=== PATIENT | male | born 1990 | race American Indian/Alaskan Native ===

== ENCOUNTER 2017-08-26 17:36 | Emergency (ER) | payer SELFPAY ==
[2017-08-26 19:05] LABS: Basophils % (Auto) 0.2 % (0.0-1.8); Eosinophils # (Auto) 0.1 K/mm3 (0.0-0.4); Hematocrit 43.2 % (35.5-45.6); Hemoglobin 14.5 gm/dl (11.8-15.2); Lymphocytes # (Auto) 1.7 K/mm3 (1.2-5.4); Lymphocytes % (Auto) 13.2 % (13.4-35.0); Mean Corpuscular HGB Conc 34 % (32-34); Mean Corpuscular Hemoglobin 30 pg (28-32); Mean Corpuscular Volume 89 fl (84-94); Monocytes % (Auto) 7.3 % (0.0-7.3); Platelet Count 246 K/mm3 (140-440); Red Blood Count 4.88 M/mm3 (3.65-5.03); Red Cell Distribution Width 12.9 % (13.2-15.2)
[2017-08-26 19:12] LABS: BUN/Creatinine Ratio 11; Blood Urea Nitrogen 8 mg/dL (9-20); Calcium 9.1 mg/dL (8.4-10.2); Hemolysis Index 10
--- NOTE | 2017-08-26 20:01 | XRay Report ---
FINAL REPORT EXAM: XR CHEST ROUTINE 2V HISTORY: Shortness of breath TECHNIQUE: PA and lateral views of the chest PRIORS: None. FINDINGS: Lines, tubes, and devices: N/A Lungs and pleura: Trachea is normal in position. Lungs are clear of infiltrate, pleural effusion, vascular congestion, or pneumothorax. Cardiomediastinal silhouette: Cardiac and mediastinal silhouettes are unremarkable. Other: Bony structures are intact. IMPRESSION: No acute cardiopulmonary process seen.
--- NOTE | 2017-08-27 04:10 | Emergency Department Report ---
ED General Adult HPI - General Chief complaint: Dyspnea/Respdistress Stated complaint: L SIDE PAIN Time Seen by Provider: 08/27/17 04:02 Source: patient Mode of arrival: Ambulatory Limitations: No Limitations - History of Present Illness Initial comments: Patient is a 26 years old male with no significant past medical history, presented to the ER with 2 complaints. First patient stated that he was walking home last night when he felt something hit him in his upper left chest, so when he went home he looked at it and it looked like a foreign object just hit him and he removed it and complaining of pain from the site. He stated that his tetanus shot is up-to-date, saying that he was done 2 years ago. His second complaint is cough and shortness of breath. Cough is productive with greenish sputum. Patient denied any fever. No nausea no vomiting no diarrhea. - Related Data Previous Rx's Medication Instructions Recorded Last Taken Type Amoxicillin [Amoxicillin TAB] 875 mg PO BID #14 tablet 08/27/17 Unknown Rx Naproxen [Naprosyn] 500 mg PO BID #14 tablet 08/27/17 Unknown Rx guaiFENesin/CODEINE [Robitussin AC] 10 ml PO TID PRN #100 ml 08/27/17 Unknown Rx Allergies Allergy/AdvReac Type Severity Reaction Status Date / Time No Known Allergies Allergy Verified 08/26/17 18:36 ED Review of Systems ROS: Stated complaint: L SIDE PAIN Other details as noted in HPI Comment: All other systems reviewed and negative Constitutional: denies: chills, fever Respiratory: cough, shortness of breath. denies: SOB with exertion, wheezing Cardiovascular: denies: chest pain, palpitations, dyspnea on exertion Gastrointestinal: denies: abdominal pain, nausea, vomiting, diarrhea, constipation, hematemesis, hematochezia Musculoskeletal: denies: back pain Neurological: denies: headache, weakness, numbness, paresthesias ED Past Medical Hx - Past Medical History Previous Medical History?: Yes - Surgical History Past Surgical History?: No - Social History Smoking Status: Current Every Day Smoker Substance Use Type: None, Alcohol - Medications Home Medications: Home Medications Medication Instructions Recorded Confirmed Last Taken Type Amoxicillin [Amoxicillin TAB] 875 mg PO BID #14 tablet 08/27/17 Unknown Rx Naproxen [Naprosyn] 500 mg PO BID #14 tablet 08/27/17 Unknown Rx guaiFENesin/CODEINE [Robitussin AC] 10 ml PO TID PRN #100 ml 08/27/17 Unknown Rx ED Physical Exam - General Limitations: No Limitations General appearance: alert, in no apparent distress - Head Head exam: Present: atraumatic, normocephalic, normal inspection - Eye Eye exam: Present: normal appearance, PERRL - ENT ENT exam: Present: normal exam, normal orophraynx, mucous membranes moist, TM's normal bilaterally, normal external ear exam - Neck Neck exam: Present: normal inspection, full ROM. Absent: tenderness, meningismus, lymphadenopathy, thyromegaly - Respiratory Respiratory exam: Present: normal lung sounds bilaterally, other (2 cm wound to the left upper chest, no discharge or foreign body present.). Absent: respiratory distress, wheezes, rales, rhonchi, stridor, chest wall tenderness, accessory muscle use, decreased breath sounds, prolonged expiratory - Cardiovascular Cardiovascular Exam: Present: regular rate, normal rhythm, normal heart sounds - GI/Abdominal GI/Abdominal exam: Present: soft, normal bowel sounds. Absent: distended, tenderness, guarding, rebound, rigid, organomegaly, mass, bruit, pulsatile mass , hernia - Extremities Exam Extremities exam: Present: normal inspection, full ROM, normal capillary refill - Back Exam Back exam: Present: normal inspection, full ROM. Absent: CVA tenderness (R), CVA tenderness (L), muscle spasm, paraspinal tenderness - Neurological Exam Neurological exam: Present: alert, oriented X3, CN II-XII intact, normal gait - Skin Skin exam: Present: warm, intact, normal color. Absent: cyanosis ED Course Vital Signs 08/26/17 08/27/17 08/27/17 18:36 04:47 04:51 Temperature 98.2 F 98 F Pulse Rate 104 H 98 H Respiratory 16 20 Rate Blood Pressure 114/59 Blood Pressure 104/60 [Right] O2 Sat by Pulse 100 Oximetry - Reevaluation(s) Reevaluation #1: 08/27/17 04:13 When patient presented to the ER the wound is definitely more than 24 hours. So suture is not applied for that reason. ED Medical Decision Making - Lab Data Result diagrams: 08/26/17 18:45 08/26/17 18:45 - EKG Data -: EKG Interpreted by [facility] EKG shows normal: sinus rhythm Rate: normal - EKG Data Interpretation: no acute changes - Radiology Data Radiology results: report reviewed Referring Physician: MAY FRANCISCO Patient Name: SEBASTIEN GALVAN Date of : 1990 Sex: Male Report Date: 2017-08-26 Report Status: Finalized Findings [facility] [address] [place] [address] XRay Report Signed Patient: SEBASTIEN GALVAN MR#: [id number] : 1990 Acct:[id number] Age/Sex: 26 / M ADM Date: 08/26/17 Loc: ED Attending Dr: Ordering Physician: MAY FRANCISCO MD Date of Service: 08/26/17 Procedure(s): XR chest routine 2V Accession Number(s): [id number] cc: MAY FRANCISCO MD Fluoro Time In Minutes: FINAL REPORT EXAM: XR CHEST ROUTINE 2V HISTORY: Shortness of breath TECHNIQUE: PA and lateral views of the chest PRIORS: None. FINDINGS: Lines, tubes, and devices: N/A Lungs and pleura: Trachea is normal in position. Lungs are clear of infiltrate, pleural effusion, vascular congestion, or pneumothorax. Cardiomediastinal silhouette: Cardiac and mediastinal silhouettes are unremarkable. Other: Bony structures are intact. IMPRESSION: No acute cardiopulmonary process seen. Transcribed By: [facility] Dictated By: VIVIENNE ARANDA MD Electronically Authenticated By: VIVIENNE ARANDA MD Signed Date/Time: 08/26/171557 DD/ 57 TD/TT: 08/26/171557 Critical care attestation.: If time is entered above; I have spent that time in minutes in the direct care of this critically ill patient, excluding procedure time. ED Disposition Clinical Impression: Acute bronchitis, Laceration of chest wall Disposition: - TO HOME OR SELFCARE Is pt being admited?: No Condition: Stable Instructions: Laceration (ED), Acute Bronchitis (ED) Prescriptions: Amoxicillin [Amoxicillin TAB] 875 mg PO BID #14 tablet guaiFENesin/CODEINE [Robitussin AC] 10 ml PO TID PRN #100 ml PRN Reason: Cough Naproxen [Naprosyn] 500 mg PO BID #14 tablet Referrals: PRIMARY CARE, [Primary Care Provider] - 3-5 Days
[2017-08-27 04:52] VITALS: BP 104/60
== END 2017-08-27 04:51 | disposition home or self-care (01) ==
LOC: ED 17:36
DX: S21.112A Laceration without foreign body of left front wall of thorax without penetration into thoracic cavity, initial encounter (principal); J20.9 Acute bronchitis, unspecified; F17.200 Nicotine dependence, unspecified, uncomplicated; W22.8XXA Striking against or struck by other objects, initial encounter; Y93.89 Activity, other specified; Y99.8 Other external cause status; Y92.89 Other specified places as the place of occurrence of the external cause
CPT/HCPCS: 36415; 71046; 80048; 85025; 93005; 93010; 99284

== ENCOUNTER 2018-03-11 07:43 | Emergency (ER) | payer SELFPAY ==
--- NOTE | 2018-03-11 09:30 | Emergency Department Report ---
Minor Respiratory - HPI Chief Complaint: Upper Respiratory Infection Stated Complaint: S.O.B Time Seen by Provider: 03/11/18 09:23 Duration: 5 Days Pain Location: Chest Severity: moderate Minor Respiratory: Yes Rhinorrhea, Yes Sore Throat (cratchy), Yes Able to Tolerate Fluids, Yes Cough (productive of yellow sputum), Yes Chest Pain (mild ache), No Ear Pain, No Sick Contacts, No Hemoptysis ED Review of Systems ROS: Stated complaint: S.O.B Other details as noted in HPI Comment: All other systems reviewed and negative ED Past Medical Hx - Past Medical History Previous Medical History?: No - Social History Smoking Status: Current Every Day Smoker - Medications Home Medications: Home Medications Medication Instructions Recorded Confirmed Last Taken Type Amoxicillin [Amoxicillin TAB] 875 mg PO BID #14 tablet 08/27/17 Unknown Rx Naproxen [Naprosyn] 500 mg PO BID #14 tablet 08/27/17 Unknown Rx guaiFENesin/CODEINE [Robitussin AC] 10 ml PO TID PRN #100 ml 08/27/17 Unknown Rx ALBUTEROL Inhaler [ProAir HFA 2 puff IH QID PRN #1 inhalation 03/11/18 Unknown Rx Inhaler] Azithromycin [Zithromax Z-VALDEMAR] 250 mg PO DAILY #6 tablet 03/11/18 Unknown Rx Benzonatate [Tessalon Perles] 100 mg PO Q8HR #10 capsule 03/11/18 Unknown Rx predniSONE [Deltasone] 20 mg PO QDAY #5 tab 03/11/18 Unknown Rx Minor Respiratory Exam - Exam General: Vital signs noted. No distress. Alert and acting appropriately. HEENT: Yes Moist Mucous Membranes, No Pharyngeal Erythema, No Pharyngeal Exudates, No Rhinorrhea, No Conjuctival Injection, No Frontal Tenderness, No Maxillary Tenderness Ear: Neither TM Bulge, Neither TM Erythema, Neither EAC Pain, Neither EAC Discharge Neck: Yes Supple, No Adenopathy Lungs: Yes Good Air Exchange, No Wheezes, No Ronchi, No Stridor, No Cough, No Labored Respirations, No Retractions, No Use of Accessory Muscles, No Other Abnormal Lung Sounds Heart: Yes Regular, No Murmur Abdomen: Yes Normal Bowel Sounds, No Tenderness, No Peritoneal Signs Skin: No Rash, No Edema Neurologic: Alert and oriented, no deficits. Musculoskeletal: Unremarkable. ED Course Vital Signs 03/11/18 07:48 Temperature 97.6 F Pulse Rate 89 Respiratory 15 Rate Blood Pressure 128/84 O2 Sat by Pulse 100 Oximetry ED Medical Decision Making - Medical Decision Making Patient is a 27-year-old -[place] male history of tobacco use who is complaining of productive cough for almost a week. Patient will be treated with a Z-Valdemar and will be discharged home with meds for symptomatic relief. Critical care attestation.: If time is entered above; I have spent that time in minutes in the direct care of this critically ill patient, excluding procedure time. ED Disposition Clinical Impression: Acute bronchitis Qualifiers: Bronchitis organism: unspecified organism Qualified Code(s): J20.9 - Acute bronchitis, unspecified Disposition: DC-01 TO HOME OR SELFCARE Is pt being admited?: No Does the pt Need Aspirin: No Condition: Stable Instructions: Acute Bronchitis (ED) Referrals: PRIMARY CARE, [Primary Care Provider] - 3-5 Days Time of Disposition: 09:29
[2018-03-11 09:46] VITALS: BP 124/81
== END 2018-03-11 09:45 | disposition home or self-care (01) ==
LOC: ED 07:43
DX: J02.9 Acute pharyngitis, unspecified (principal); F17.200 Nicotine dependence, unspecified, uncomplicated
CPT/HCPCS: 99282

== ENCOUNTER 2020-12-19 15:26 | Emergency (ER) | payer SELFPAY ==
[2020-12-19 16:41] VITALS: BP 130/83
--- NOTE | 2020-12-19 19:28 | Event Note ---
ED Screening Note Date of service: 12/19/20 Time: 19:26 ED Screening Note: This initial assessment/diagnostic orders/clinical plan/treatment(s) is/are subject to change based on patients health status, clinical progression and re- assessment by fellow clinical providers in the ED. Further treatment and workup at subsequent clinical providers discretion. Patient/guardian urged not to elope from the ED as their condition may be serious if not clinically assessed and managed. Initial orders include:
--- NOTE | 2020-12-19 19:33 | Emergency Department Report ---
Chief Complaint: Urogenital-Male Stated Complaint: STD/BRONCHITIS FLARE UP Time Seen by Provider: 12/19/20 19:25 - HPI History of Present Illness: 30-year-old male presents to the ED wanting an STD check stating that his girlfriend called him stating that he needed to go get tested because she was being treated for an STD. Patient states that he does have some minor penile discharge that he noticed today. Patient denies any dysuria, pelvic pain, scrotal pain, scrotum swelling. Patient also denies fever/chills/nausea or vomiting/shortness of breath, chest pain or any sick contact.. Patient also complaining that he has a history of bronchitis and has been having intermittent coughing and thinks that allergies are flaring of his bronchitis. - ROS Review of Systems: As noted in HPI - Exam Vital Signs: Vital Signs 12/19/20 16:40 Temperature 99 F Pulse Rate 99 H Respiratory 18 Rate Blood Pressure 130/83 [Right] O2 Sat by Pulse 100 Oximetry Physical Exam: GENERAL: Alert and oriented x3, no apparent distress, Normal Gait, atraumatic. HEAD: Head is normocephalic and a-traumatic. SKIN: Warm and dry, No lesions, No ulceration or induration present. MSE screening note: Focused history and physical exam performed. Due to findings the following was ordered: ED Medical Decision Making - Medical Decision Making This 30-year-old male presents for STD checkup and treatment. In discussing with patient that he needed to follow-up with the health department for further STD testing. Patient given doxycycline and cephalexin as outpatient treatment. Patient had no medical emergency throughout ED stay. Vital signs are normal he was in no respiratory distress. I did advise patient to follow-up with the health department and Clinics where he can get tested and treated. ED Disposition for MSE Clinical Impression: Exposure to sexually transmitted disease (STD), Bronchitis Disposition: DC-01 TO HOME OR SELFCARE Is pt being admited?: No Does the pt Need Aspirin: No Condition: Stable Instructions: Upper Respiratory Infection, Adult, Hisq-ne-Gluw, Safe Sex, Chronic Bronchitis (ED) Additional Instructions: Make sure to follow up with the primary care physician as discussed. Take all your medications as you've been prescribed. Follow-up with the health department for further testing If you have any worsening symptoms or develop new symptoms please return to ED immediately. Prescriptions: ceFIXime [Cefixime] 400 mg PO ONCE #1 capsule Doxycycline Hyclate [Doxycycline Hyclate TAB] 100 mg PO Q12HR #14 tab Referrals: RENUKA VARGAS MD [Staff Physician] - 3-5 Days Forms: Work/School Release Form(ED)
== END 2020-12-19 20:44 | disposition home or self-care (01) ==
LOC: ED 15:26
DX: J40 Bronchitis, not specified as acute or chronic (principal); Z20.2 Contact with and (suspected) exposure to infections with a predominantly sexual mode of transmission
CPT/HCPCS: 99281